=== PATIENT | female | born 1960 | race Caucasian/White ===

== ENCOUNTER → 2022-01-05 01:32 | Outpatient (CLI) | payer MEDICAID, SELFPAY ==
[2022-01-05 10:22] LABS: ESR 1 mm/hr (0-30)
[2022-01-05 10:23] LABS: Abs Immature Grans 0.01 10^3/uL (0.0-0.06); Absolute Basophil Count 0.03 10^3/uL (0.0-0.2); Absolute Eosinophil Count 0.06 10^3/uL (0.0-0.7); Absolute Lymphocyte Count 1.41 10^3/uL (1.2-3.4); Absolute Monocyte Count 0.37 10^3/uL (0.1-0.8); Absolute Neutrophil Count 1.86 10^3/uL (1.2-6.7); Basophils % 0.8; Eosinophils % 1.6; HCT 39.2 % (36.0-46.0); HGB 12.8 g/dL (11.2-15.7); Immature Grans % 0.3; Lymphocytes % 37.7; MCH 29.4 pg (27.0-33.0); MCHC 32.7 % (32.0-36.0); MCV 90 fL (80-95); MPV 10.6 fL (8.0-11.0); Monocytes % 9.9; Neutrophils % 49.7; Platelet Count 282 10^3/uL (130-400); RBC 4.36 10^6/uL (3.93-5.22); RDW 12.4 % (11.7-14.6); RDW-SD 41.2 fL; WBC 3.74 10^3/uL (4.4-10.8)
[2022-01-05] MEDS: Barium Sulfate 2% W/V-Berry Smoothie 450 ML BTL PO ×2 (10:23→10:37)
[2022-01-05 10:49] LABS: Iron 125 ug/dL (50-170); Total Iron Binding Capacity 321 ug/dL (250-450); Transferrin Sat 39 % (15-50)
[2022-01-05 11:03] LABS: ALT 23 U/L (14-59); AST 16 U/L (15-37); Albumin 4.1 g/dL (3.4-5.0); Alkaline Phosphatase 55 U/L (46-116); Anion Gap 8.9 mmol/L (3-11); BUN 8 mg/dL (7-18); Bilirubin, Total 0.5 mg/dL (0.2-1.0); CO2 30.1 mmol/L (21.0-32.0); CREATININE 0.9 mg/dL (0.55-1.02); Calcium 9.3 mg/dL (8.5-10.1); Calculated LDL 132 mg/dL (<100); Chloride 105 mmol/L (98-107); Cholesterol 211 mg/dL (<200); Ferritin 46 ng/mL (8-252); Folate > 20.0 ng/mL (8.6-20.0); Glucose 101 mg/dL (74-106); HDL Cholesterol 69 mg/dL (40-60); Potassium 3.9 mmol/L (3.5-5.1); Sodium 144 mmol/L (136-145); TSH 1.22 uIU/mL (0.36-3.74); Total Protein 7.2 g/dL (6.4-8.2); Triglyceride 53 mg/dL (<150); Vitamin B12 1748 pg/mL (193-986)
[2022-01-05 11:19] LABS: C-Reactive Protein < 0.05 mg/dL (0.0-0.3); FREE T4 1.12 ng/dL (0.76-1.46)
--- NOTE | 2022-01-05 12:43 | DI.CT_ITS ---
Exam(s) CT ABDOMEN PELVIS W EXAM: CT ABDOMEN PELVIS W INDICATION: LOW BACK PAIN, M54.50, CONCERN SACRAL REGION/RECTUM. COMPARISON: No exams were available for comparison TECHNIQUE: FINDINGS: CT examination of the abdomen and pelvis was performed with intravenous infusion of 100 cc of Omnipaq ue 350. Images obtained through the lung bases are unremarkable. The liver is unremarkable in appearance. Gallbladder and bile ducts are CT normal. Pancreas appears normal. Spleen is unremarkable in appearance. Adrenals appear normal. The right kidney is unremarkable in appearance with no evidence of hydronephrosis, nephrolithiasis, o r mass. The left kidney contains multiple large nonobstructing renal calculi. No left renal mass no left ure teral calcification period urinary bladder is unremarkable appearance.. Abdominal aorta is of normal diameter and no major vascular abnormality is seen. No abdominal wall hernia. No abdominal or pelvic adenopathy. TEACHER ASSOCIATE structures appear intact. Appendix is normal. No evidence diverticulitis. There is a very large quantity of fecal material th roughout colon to rectum consistent with constipation.. IMPRESSION: The appearance suggests severe constipation. No evidence of bowel obstruction. Multiple nonobstructing left renal calculi noted. RADIATION DOSE DELIVERED: 545.21mGy.cm Total DLP 545.21mGy.cm Total DLP !Error CTDIvol RADIATION OPTIMIZATION: All CT scans at this facility use at least one of these dose optimization te chniques: automated exposure control; mA and/or kV adjustment per patient size (includes targeted exa ms where dose is matched to clinical indication); or iterative reconstruction.
[2022-01-05] MEDS: Omnipaque 350 MG/ML 100 ML BTL IJ (12:45)
[2022-01-05 17:57] LABS: T3,Free 3.4 pg/mL (2.8-5.3)
[2022-01-06 14:28] LABS: Insulin 4.2 uIU/mL (<29.0)
[2022-01-07 09:12] LABS: Homocysteine 17.2 umol/L (5.0-13.9)
[2022-01-07 09:45] LABS: Lipoprotein (a) 19 nmol/L (<75)
== END ==
PROVIDERS: PCP Nurse Practitioner; Visit Provider Naturopath
DX: K59.00 Constipation, unspecified (principal); N20.0 Calculus of kidney
CPT/HCPCS: 80053; 80061; 83090; 83695; 85652; 74177; 82607; 82728; 82746; 83036; 83525; 83540; 83550; 84439; 84443; 84481; 85025; 86140; J3490

== ENCOUNTER 2022-01-14 11:06 | Emergency (ER) | payer MEDICAID, SELFPAY ==
[2022-01-14 11:11] VITALS: BP 136/92; PULSE 73; RESP 18; TEMP 36.8; O2SAT 98
[2022-01-14 11:39] VITALS: RESP 16
[2022-01-14] MEDS: Normal Saline 1,000 ML 1000 ML IV (11:54)
[2022-01-14 11:57] LABS: Lactate 0.8 mmol/L (0.6-1.4)
[2022-01-14 11:58] LABS: Absolute Basophil Count 0.03 10^3/uL (0.0-0.2); Absolute Eosinophil Count 0.07 10^3/uL (0.0-0.7); Absolute Lymphocyte Count 1.63 10^3/uL (1.2-3.4); Absolute Monocyte Count 0.32 10^3/uL (0.1-0.8); Absolute Neutrophil Count 1.86 10^3/uL (1.2-6.7); Basophils % 0.8; Eosinophils % 1.8; HCT 38.2 % (36.0-46.0); HGB 12.6 g/dL (11.2-15.7); Lymphocytes % 41.7; MCH 29.4 pg (27.0-33.0); MCV 89 fL (80-95); MPV 10.8 fL (8.0-11.0); Monocytes % 8.2; Neutrophils % 47.5; Platelet Count 253 10^3/uL (130-400); RBC 4.28 10^6/uL (3.93-5.22); RDW 12.7 % (11.7-14.6); RDW-SD 41.5 fL; WBC 3.91 10^3/uL (4.4-10.8)
[2022-01-14 12:15] LABS: ALT 26 U/L (14-59); AST 16 U/L (15-37); Albumin 3.9 g/dL (3.4-5.0); Alkaline Phosphatase 50 U/L (46-116); Anion Gap 8.3 mmol/L (3-11); BUN 11 mg/dL (7-18); Bilirubin, Total 0.4 mg/dL (0.2-1.0); CO2 28.7 mmol/L (21.0-32.0); CREATININE 0.8 mg/dL (0.55-1.02); Chloride 104 mmol/L (98-107); Glucose 93 mg/dL (74-106); Lipase 110 U/L (73-393); Magnesium 2.2 mg/dL (1.8-2.4); Potassium 4.1 mmol/L (3.5-5.1); Sodium 141 mmol/L (136-145); Total Protein 7.1 g/dL (6.4-8.2)
--- NOTE | 2022-01-14 12:18 | DI.RAD_ITS ---
Exam(s) XR ABD FLAT UPRIGHT PA CHEST CLINICAL HISTORY: Constipation. COMPARISON: CR CHEST 2 VIEWS PA,LAT from 05/12/[address] ABDOMEN PELVIS W from 01/05/2022 FINDINGS: LUNGS: Clear. No pleural abnormality seen. HEART: Normal. MEDIASTINUM: Normal. BOWEL GAS PATTERN: Nondistended bowel loops. Significant improvement since prior CT with marked decre ase in quantity of fecal material. ABNORMAL COLLECTIONS OF AIR: No abnormal collection of air. No pneumoperitoneum. CALCIFICATIONS: Calcifications projecting in upper pole of left kidney as seen on prior CT. IMPRESSION: 1. Significant interval decrease in quantity of stool. 2. No acute pulmonary findings.
--- NOTE | 2022-01-14 12:26 | ED.GENADUL_ITS ---
Discharge Plan Disposition Patient Disposition: HOME Condition: Improving Discharge Details Clinical Impression: Constipation Primary Care Provider: Angelica Jackson ED Provider: Seferino Wahl Home Meds and New Rx's Prescriptions: New PEG-Prep 5-210 mg-gram kit See Rx Instructions .ROUTE .COMPLEX Qty: 2 0RF Rx Instructions: (240 mL [8 oz] every 15 minutes x 4 doses wait 2 hours then repeat once Discharge Instructions Instructions: Constipation (ED) Additional Instructions: If you develop fever chills nausea vomiting blood in your stool or significant worsening of symptoms please return to the emergency department. Otherwise take medications as discussed and a follow-up appointment request has been placed to follow-up with general surgery in the next couple weeks for reassessment of why you have persistent constipation. Referrals: [facility] [Provider Group] - 2 weeks Discharge Data Discharge Date/Time-TO BE ENTERED AT DEPARTURE: 01/14/22 15:29 Medical Decision Making Patient presenting to the emergency department for chief complaint of severe constipation. Patient recently had CT scan that showed this and patient states that she has had worsening bowel movements with now only slight water passage. Patient denies fever chills nausea vomiting or blood. She has used multiple stool softeners and laxatives that are not helping at all. Patient states that she has had changing bowel function for the past 6 months with no improvement and slightly worsening. Physical exam is unremarkable. We will plan on performing labs and plain film imaging along with giving IV fluids pending results. Review of labs show an overall unremarkable CBC, normal lactate, unremarkable CMP and lipase. Repeat plain film imaging compared to CT imaging actually shows significant improvement. Discussed risk versus benefit of digital disimpaction due to patient reporting sensation of significant blockage. After discussion of risk versus benefit verbal consent was obtained. RN was in the room for procedure and patient was given small amount of Ativan to help with her anxiety and lidocaine jelly was utilized to lessen discomfort. No stool impaction was noted, no stool in the palpable rectum was able to be appreciated and no sample was even able to be obtained to check for Hemoccult. Patient tolerated procedure well. We will give patient enema to see if this provides her any relief. Patient had 2 watery stools with no significant stool passage. Given patient's continued complaint of constipation will prescribe patient bowel prep to see if this helps with completely evacuating the bowels. Patient was then encouraged to perform clear liquid diet for 24 hours and then slowly advance diet with continuing only stool softeners or Metamucil to help with continued bowel movements. Given that patient has had significant change in bowel function over the last 6 months a referral was placed for general surgery for follow-up and recheck of her symptoms along with consideration of repeat colonoscopy due to the fact that she has not had one in 10 years. After discussion of diagnosis and plan of care patient has no further needs, questions, or concerns and states clear understanding to return to the emergency department for any worsening symptoms. This documentation was generated using [employer] Everywhereation system, please disregard any oddities of phrase or misspellings. Imaging Data Radiologic Study: Imaging: X-Ray Radiologist's impression: FINDINGS: LUNGS: Clear. No pleural abnormality seen. HEART: Normal. MEDIASTINUM: Normal. BOWEL GAS PATTERN: Nondistended bowel loops. Significant improvement since prior CT with marked decrease in quantity of fecal material. ABNORMAL COLLECTIONS OF AIR: No abnormal collection of air. No pneumoperitoneum. CALCIFICATIONS: Calcifications projecting in upper pole of left kidney as seen on prior CT. IMPRESSION: 1. Significant interval decrease in quantity of stool. 2. No acute pulmonary findings. Lab Data Lab results reviewed: Yes I reviewed the patient's lab results. HPI General Mode of arrival: ambulatory . Date/Time Provider Initiated Documentation: 01/14/22 11:14 . Limitations to Documentation: no limitations . Information obtained by: patient and RN notes reviewed . History of Present Illness 62 year old F presents to the emergency department with the chief complaint of Constipation, described as severe and similar to prior episodes, Quality is described as other (Denies pain), Patient reports no radiation. Patient started experiencing this month(s) (6) and it has been constant. No relieving factors improve symptom(s), No exacerbating factors reported . Patient notes no other symptoms.. Patient did receive the following treatments prior to arrival, other (Qydb-wzv-schgsxo laxatives) Related Data Home Medications Medication Instructions Recorded Confirmed bisacodyl 5 mg-peg 210 See Rx Instructions .Route 01/14/22 gram-electrolyte solution oral kit .COMPLEX #2 ea (PEG-Prep) Previous Rx's Medication Instructions Recorded bisacodyl 5 mg-peg 210 See Rx Instructions .Route 01/14/22 gram-electrolyte solution oral kit .COMPLEX #2 ea (PEG-Prep) Allergies Allergy/AdvReac Type Severity Reaction Status Date / Time No Known Allergies Allergy Unverified 01/14/22 11:14 General Stated Complaint: GenMedical RONAK: 3 Review of Systems Constitutional Constitutional: Denies chills, Denies fever(s) and Reports poor appetite Cardiovascular Cardiovascular: Denies chest pain and Denies dyspnea Respiratory Respiratory: Denies cough and Denies dyspnea Gastrointestinal Gastrointestinal: Reports as per HPI, Denies abdominal pain, Denies melena, Denies hematochezia, Reports change in bowel habits, Reports change in stool character, Reports constipation, Denies diarrhea, Denies nausea and Denies vomiting Genitourinary Genitourinary: Denies hematuria, Denies urinary incontinence, Denies urinary hesitancy and Denies urinary urgency Integumentary/Breasts Skin/Breast: Denies rash PFSH All Active Problems Constipation (Acute) Social History Smoking/Tobacco Use Status: Never Smoking risk assessment performed?: Yes Alcohol Intake: current Alcohol Intake frequency: holidays/special occasions only Drug use: Never Substance use type: does not use Do you feel safe at home: Yes Do you feel safe in your relationship?: Yes Exam Const General: cooperative Orientation: alert, awake and oriented x3 Resp Effort & Inspection: normal respiratory effort and able to speak in complete sentences Auscultation: clear to auscultation bilaterally Cardio Rate: regular rate Rhythm: regular rhythm Heart Sounds: S1 normal and S2 normal GI Palpation: soft, no hepatosplenomegaly, not firm, no guarding, no masses, no p ulsatile masses, not rigid, no splenomegaly and nontender Auscultation: hypoactive bowel sounds Rectal Exam - female: visual inspection normal, normal sphincter tone, No fecal impaction, No tenderness and other (Insurance Sales Executive present for exam) Back/Spine/Pelvis Back: no CVA tenderness Neuro General: patient alert, patient awake, patient oriented x3, gait normal and moves all extremities Course Vital Signs Vital signs: Vital Signs Temperature 36.8 C 01/14/22 11:11 Pulse 73 01/14/22 11:11 Respiratory Rate 18 01/14/22 11:11 Blood Pressure 136/92 H 01/14/22 11:11 Pulse Oximetry 98 01/14/22 11:11 Temperature 36.8 C 01/14/22 11:11 Temperature Source Temporal Artery Scan 01/14/22 11:11 Pulse 73 01/14/22 11:11 Respiratory Rate 16 01/14/22 11:39 Respiratory Effort Non-Labored 01/14/22 11:39 Respiratory Depth Normal 01/14/22 11:39 Respiratory Pattern Normal 01/14/22 11:39 Blood Pressure 136/92 H 01/14/22 11:11 Blood Pressure Position Sitting 01/14/22 11:11 Pulse Oximetry 98 01/14/22 11:11 Oxygen Delivery Method Room Air 01/14/22 11:11 Oxygen Flow Rate 0 01/14/22 11:11 Lab/Test Results Lab/Test Results: Laboratory Tests Range/Units 01/14/22 01/14/22 01/14/22 11:54 11:54 11:54 WBC (4.4-10.8) 10^3/uL 3.91 L RBC (3.93-5.22) 10^6/uL 4.28 Hgb (11.2-15.7) g/dL 12.6 Hct (36.0-46.0) % 38.2 MCV (80-95) fL 89 MCH (27.0-33.0) pg 29.4 MCHC (32.0-36.0) % 33.0 RDW (11.7-14.6) % 12.7 Plt Count (130-400) 10^3/uL 253 MPV (8.0-11.0) fL 10.8 Immature Gran % 0.0 Neutrophils % 47.5 Lymphocytes % 41.7 Monocytes % 8.2 Eosinophils % 1.8 Basophils % 0.8 Nucleated RBC % (0.0-0.3) % 0.0 Absolute Neutrophils (1.2-6.7) 10^3/uL 1.86 Absolute Lymphocytes (1.2-3.4) 10^3/uL 1.63 Absolute Monocytes (0.1-0.8) 10^3/uL 0.32 Absolute Eosinophils (0.0-0.7) 10^3/uL 0.07 Absolute Basophils (0.0-0.2) 10^3/uL 0.03 VBG Lactate (0.6-1.4) mmol/L Sodium (136-145) mmol/L 141 Potassium (3.5-5.1) mmol/L 4.1 Chloride (98-107) mmol/L 104 Carbon Dioxide (21.0-32.0) mmol/L 28.7 Anion Gap (3-11) mmol/L 8.3 BUN (7-18) mg/dL 11 Creatinine (0.55-1.02) mg/dL 0.8 Estimated GFR/1.73 m2 (mL/min/1.73m2) >= 60.00 Glucose (74-106) mg/dL 93 Calcium (8.5-10.1) mg/dL 9.0 Magnesium Cancelled 2.2 Total Bilirubin (0.2-1.0) mg/dL 0.4 AST (15-37) U/L 16 ALT (14-59) U/L 26 Alkaline Phosphatase (46-116) U/L 50 Total Protein (6.4-8.2) g/dL 7.1 Albumin (3.4-5.0) g/dL 3.9 Lipase Cancelled 110 Range/Units 01/14/22 11:55 WBC (4.4-10.8) 10^3/uL RBC (3.93-5.22) 10^6/uL Hgb (11.2-15.7) g/dL Hct (36.0-46.0) % MCV (80-95) fL MCH (27.0-33.0) pg MCHC (32.0-36.0) % RDW (11.7-14.6) % Plt Count (130-400) 10^3/uL MPV (8.0-11.0) fL Immature Gran % Neutrophils % Lymphocytes % Monocytes % Eosinophils % Basophils % Nucleated RBC % (0.0-0.3) % Absolute Neutrophils (1.2-6.7) 10^3/uL Absolute Lymphocytes (1.2-3.4) 10^3/uL Absolute Monocytes (0.1-0.8) 10^3/uL Absolute Eosinophils (0.0-0.7) 10^3/uL Absolute Basophils (0.0-0.2) 10^3/uL VBG Lactate (0.6-1.4) mmol/L 0.8 Sodium (136-145) mmol/L Potassium (3.5-5.1) mmol/L Chloride (98-107) mmol/L Carbon Dioxide (21.0-32.0) mmol/L Anion Gap (3-11) mmol/L BUN (7-18) mg/dL Creatinine (0.55-1.02) mg/dL Estimated GFR/1.73 m2 (mL/min/1.73m2) Glucose (74-106) mg/dL Calcium (8.5-10.1) mg/dL Magnesium Total Bilirubin (0.2-1.0) mg/dL AST (15-37) U/L ALT (14-59) U/L Alkaline Phosphatase (46-116) U/L Total Protein (6.4-8.2) g/dL Albumin (3.4-5.0) g/dL Lipase Procedures Rectal Disimpaction Time Out Performed: Yes Indication: fecal impaction Procedural Sedation: No Sedation/Analgesia: benzodiazepines and other (Lido gel) Technique: manual disimpaction with gloved finger Result: unable to disimpact Patient Tolerated Procedure: well Complications: none PAWSS Have you Been Recently Intoxicated or Drunk Within the Last 30 days?: No Have you Ever Experienced Previous Episodes of Alcohol Withdrawal?: No Have you ever Experienced Withdrawal Seizures?: No Have you ever Experienced Delirium Tremens(DT)s?: No Have you ever undergone Alcohol Rehabilitation Treatment (i.e, inpt ot outpatient treatment programs)?: No Have you ever Experienced Blackouts?: No Have you ever Combined Alcohol with other Downers within the last 90 days?: No Have you ever Combined Alcohol with any other Substance of Abuse during the last 90 days?: No Positive Blood Alcohol level on Presentation? [PCS.BAL]: No Evidence of Increased Autonomic Activity (i.e. HR>120, tremor, sweating, agitation, nausea)?: No Result: 0
[2022-01-14] MEDS: Lidocaine 2% Jelly 6 ML SYR TP (13:15)
[2022-01-14] MEDS: LORazepam 20 MG/10 ML VIAL IVP (13:51)
--- NOTE | 2022-01-14 14:42 | NUR.NOTE ---
Nursing Note: Pt info faxed to general surgery for follow up in 1-2 weeks for severe constipation and recheck. Hiral, ED
== END 2022-01-14 15:29 | disposition home or self-care (01) ==
PROVIDERS: Emergency Provider Nurse Practitioner Family; PCP Naturopath
DX: K59.00 Constipation, unspecified (principal); F41.9 Anxiety disorder, unspecified
CPT/HCPCS: 36415; 80053; 83690; 96361; 96374; 99284; 74022; 83605; 83735; 85025; J3490

== ENCOUNTER 2022-02-18 09:12 | Day surgery (SDC) | payer MEDICAID, SELFPAY ==
[2022-02-18 09:20] VITALS: BP 131/85; PULSE 70; RESP 18; TEMP 36.6; O2SAT 99
--- NOTE | 2022-02-18 09:41 | W.PM.DSUDISC ---
Discharge Plan Disposition Patient Disposition: HOME Condition: Good Discharge Details Reason For Visit: Colonoscopy Attending Provider: Ruyd Plunkett Primary Care Provider: Angelica Jackson Home Meds and New Rx's Prescriptions: Continued slippery elpavithra bark 400 mg capsule 400 mg PO DAILY Discontinued polyethylene glycol 3350 17 gram/dose powder 238 g PO ONCE Qty: 238 0RF Rx Instructions: take per colonoscopy instructions bisacodyl [Dulcolax (bisacodyl)] 5 mg tablet,delayed release (DR/EC) 5 mg PO ONCE Qty: 4 0RF Rx Instructions: take per colonoscopy instructions No Action B-complex with vitamin C [[id number]] Capsule 1 cap PO DAILY Discharge Instructions Instructions: Colonoscopy (DC), Constipation (DC) Additional Instructions: 1. If tolerated, consume a soft, low fiber diet for 1-2 days. [address] Do not drive, drink alcohol, operate machinery, make critical decisions, or do activities that require coordination or balance for 24 hours. 3. Because air was put into your colon during the procedure, expelling air from your rectum (passing gas or farting) is normal. 4. You may not have a bowel movement for 1-3 days because of the colonoscopy prep. This is normal. 5. Go directly to the emergency room if you notice any of the following: Develop chills (warm to touch), or if you have a thermometer and your temperature is above 101 Difficulty breathing or difficultly swallowing Persistent vomiting Severe abdominal pain, other than gas cramps Severe chest pain Black, tarry stools Any bleeding ? exceeding one tablespoon 6. Call your physician if the site where your intravenous was started becomes red, swollen, painful, and warm to touch. 7. Your physician has reviewed your pre-procedure medications. Please continue to take those medications as previously ordered. You will be given specific information/education regarding any changes to your medications before leaving. Activity:: Activity as Tolerated Diet:: As Tolerated Discharge Orders Discharge Orders: Discharge Order (Routine); Ordered 02/18/22 Ordered By: Rudy Plunkett DS: Diagnosis Discharge Diagnosis (1) Colon polyp: Status: Acute Asessment and Plan: Follow up with me 1-3 weeks to discuss other diagnostic options
--- NOTE | 2022-02-18 09:43 | COLE_ITS ---
Colonoscopy Report Date of procedure: 02/18/22 Pre-op diagnosis general: Constipation and rectal pain Post-op diagnosis procedure note: same Procedure: Diagnostic colonoscopy Surgeon: Rudy Plunkett Anesthesia Type: General:No Airway Estimated blood loss (mL): 20 Pathology: other (polyp from 27 cm, poly from 20 cm) Complications: None Disposition: same day Indications: Denia is a 62-year-old with longstanding lower pelvic and rectal pain. She is undergone multiple CT scans that demonstrated chronic constipation. She also has concerns of a rectocele. Prep: Miralax/Dulcolax Procedure Start Time: 12:02 Procedure End Time: 12:45 Retraction Time: 12 Findings: Dilated patulous colon, and 2 rectal polyps Procedure Description: After the induction of monitored anesthetic care, and with the patient in left lateral decubitus position, I began by performing an external anorectal exam.? Perineum and skin were normal, as was the anal verge.? There are some fibrosed external hemorrhoids.? Next, I performed a digital rectal exam.? I did not appreciate any abnormal findings.? I am unable to palpate a rectocele next, I advanced a colonoscope into the rectal vault.? I performed retroflexion.? There are some mild internal hemorrhoids.? Using insufflation, I then advanced the c olonoscope beyond the rectal folds and into the sigmoid colon before advancing towards the cecum.? The quality of the prep was excellent.? I was able to advance the colonoscope to the level of the ascending colon. I was able to see the origin of the cecum, and perhaps its base. Unfortunately, because of the length and character of the colon, I was unable to advance the colonoscope to the appendiceal orifice. Despite extensive effort and positioning, I was unable to complete the colonoscopy. In fact, I asked for the assistance of my partner who also failed to cannulate the base of the cecum. Largely, the internal lining of the colon appeared quite normal. It was quite patulous and redundant. It was also quite large with insufflation. In order to minimize any iatrogenic trauma, or injury from colonoscopy, I turned my attention toward withdrawal of the scope. Once the scope was withdrawn to the level of the rectum, great care was taken to examine portions of the rectal folds.?Around 27 cm cm from the anal verge I identified a 0.25 centimeter polyp. ?It appeared sessile in character. ?I was able to remove this with a cold forcep. ?I examined the site, and there was minimal bleeding. Around 20 cm from the anal verge I identified a 0.5 cm polyp. ?It appeared sessile in character. ?I was able to remove this with a cold forcep. ?I examined the site, and there was minimal bleeding. ?Once this was completed, I continued to withdraw the scope and examine the remainder of the colonic mucosa.?Once this was completed, I continued to withdraw the scope and examine the remainder of the colonic mucosa. Finally, the scope was withdrawn and the patient was brought to the same-day surgery recovery unit as the anesthetic wore off. ?The findings and instructions were shared with the patient prior to discharge. Based on the findings of his colonoscopy, I suspect that she has a functional constipation. We talked briefly about modalities to study that like a colonic transit time. We will meet in the office for arrangements regarding the next steps in her diagnosis.
[2022-02-18] MEDS: Lactated Ringers 1,000 ML 80 ML IV (10:05)
--- NOTE | 2022-02-18 10:12 | W.ANESPRE ---
General Info Date of Service Date Performed: 02/18/22 Height: 5 ft 3 in Weight: 54.1 kg Body Mass Index (BMI): 21.1 Surgical Procedure: Operation Date: 02/18/22 10:05 Proposed Procedure Side Surgeon p Margarette Plunkett MD Meds Allergies and Home Medications Allergies Allergy/AdvReac Type Severity Reaction Status Date / Time No Known Allergies Allergy Unverified 02/18/22 09:42 Home Medication Medication Instructions Recorded slippery elm bark 400 mg capsule 400 mg PO DAILY 02/07/22 B-complex with vitamin C 1 cap PO DAILY 02/18/22 Current Visit Medications: Current Medications Generic Name Dose Route Start Last Admin Trade Name Freq PRN Reason Stop Dose Admin Hyoscyamine Sulfate 0.125 mg 02/18/22 09:44 Hyoscyamine 0.125 Mg Sl/Oral/Chew SL DIRECTED PRN Ringer's Solution 1,000 mls @ 80 mls/hr 02/18/22 06:00 IV 02/18/22 23:59 INFUSION LUÍS IV Miscellaneous Supplies 1 each 02/18/22 06:00 Iv Access IV 02/18/22 23:59 DIRECTED LUÍS Sodium Chloride 0 ml 02/18/22 06:00 Normal Saline Flush 10 Ml Syr IV 02/18/22 23:59 PRN PRN Sodium Chloride 0 ml 02/18/22 06:00 Normal Saline 10 Ml Vial IJ 02/18/22 23:59 DIRECTED PRN Sterile Water 0 ml 02/18/22 06:00 Water,Injection,Sterile 10 Ml Vial IJ 02/18/22 23:59 DIRECTED PRN PFSH Active Problems Active Problems: Problem Status Onset Code Lightheadedness R42 Varicose veins of both lower extremities I83.93 Chronic pelvic pain in female R10.2, G89.29 Rectal pain K62.89 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 Leukopenia D72.819 Impaction of intestine K56.49 Medical History Medical History Fatigue Hyperlipidemia Low back pain Surgical History Surgical History H/O section H/O colonoscopy History of tonsillectomy Tobacco Smoking/Tobacco Use Status: Never Alcohol Alcohol Intake: current Alcohol intake frequency: holidays/special occasions only Substance Use Substance use: Never Substance use type: does not use Vital Signs and Lab Results Vital Signs Most Recent Vital Signs in EMR: Most Recent Vital Signs Temp Pulse Resp BP Pulse Ox 36.6 C 70 18 131/85 99 02/18/22 09:20 02/18/22 09:20 02/18/22 09:20 02/18/22 09:20 02/18/22 09:20 Lab Results Blood Type / Crossmatch: No Data to Display Complete Blood Count: No Data to Display Complete Metabolic Panel: No Data to Display Liver Function Panel: No Data to Display Coagulation Panel: No Data to Display Cardiac Panel: No Data to Display Arterial Blood Gas: No Data to Display Venous Blood Gas: No Data to Display Pancreas Panel: No Data to Display Thyroid Panel: No Data to Display Infectious Disease: No Data to Display Blood Cultures: No Data to Display Toxicology Panel: No Data to Display Anesthesia Assessment and Plan Anesthesia History Personal History: No History of Anesthesia Complications Family History: No Family History of Anesthesia Complications Exercise Tolerance Exercise Tolerance: Metabolic Equivalents>4 Pertinent Negatives Pertinent Negatives: No Major Cardiovascular Symptoms or Complaints, No Major Pulmonary Symptoms or Complaints and No History of CVA/TIA Cardiac & Pulmonary Exam Cardiac Exam: Normal S1/S2 Heart Sounds Pulmonary Exam: Clear Bilateral Breath Sounds Implantable Cardiac Device Does patient have a Pacemaker or an ICD?: No Airway Exam Known Difficult Airway: No Mallampati Class: 2 Mouth Opening: Normal (> 3cm) Thyromental Distance: Greater than 3 cm Neck Range of Motion: Full ROM Neck Circumference: Normal Teeth Condition: Normal Dentition ASA Classification ASA Score: ASA 2 Emergency Case?: No NPO Status NPO Status: NPO Clears >2 hours, Solids >8 hours Anesthesia Plan Resuscitation Status: Full Code Anesthesia Technique: General Anesthesia Airway Planned: Natural Airway Monitors Used: Standard Monitors
--- NOTE | 2022-02-18 10:17 | W.ANESPRE ---
General Info Date of Service Date Performed: 02/18/22 Height: 5 ft 3 in Weight: 54.1 kg Body Mass Index (BMI): 21.1 Surgical Procedure: Operation Date: 02/18/22 10:05 Proposed Procedure Side Surgeon p Colonoscopy Rudy Plunkett MD Meds Allergies and Home Medications Allergies Allergy/AdvReac Type Severity Reaction Status Date / Time No Known Allergies Allergy Unverified 02/18/22 09:42 Home Medication Medication Instructions Recorded slippery elm bark 400 mg capsule 400 mg PO DAILY 02/07/22 B-complex with vitamin C 1 cap PO DAILY 02/18/22 Current Visit Medications: Current Medications Generic Name Dose Route Start Last Admin Trade Name Freq PRN Reason Stop Dose Admin Hyoscyamine Sulfate 0.125 mg 02/18/22 09:44 Hyoscyamine 0.125 Mg Sl/Oral/Chew SL DIRECTED PRN Ringer's Solution 1,000 mls @ 80 mls/hr 02/18/22 06:00 02/18/22 10:05 IV 02/18/22 23:59 80 mls/hr INFUSION LUÍS Administration IV Miscellaneous Supplies 1 each 02/18/22 06:00 Iv Access IV 02/18/22 23:59 DIRECTED LUÍS Sodium Chloride 0 ml 02/18/22 06:00 Normal Saline Flush 10 Ml Syr IV 02/18/22 23:59 PRN PRN Sodium Chloride 0 ml 02/18/22 06:00 Normal Saline 10 Ml Vial IJ 02/18/22 23:59 DIRECTED PRN Sterile Water 0 ml 02/18/22 06:00 Water,Injection,Sterile 10 Ml Vial IJ 02/18/22 23:59 DIRECTED PRN PFSH Active Problems Active Problems: Problem Status Onset Code Lightheadedness R42 Varicose veins of both lower extremities I83.93 Chronic pelvic pain in female R10.2, G89.29 Rectal pain K62.89 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 Leukopenia D72.819 Impaction of intestine K56.49 Medical History Medical History Fatigue Hyperlipidemia Low back pain Surgical History Surgical History H/O section H/O colonoscopy History of tonsillectomy Tobacco Smoking/Tobacco Use Status: Never Alcohol Alcohol Intake: current Alcohol intake frequency: holidays/special occasions only Substance Use Substance use: Never Substance use type: does not use Vital Signs and Lab Results Vital Signs Most Recent Vital Signs in EMR: Most Recent Vital Signs Temp Pulse Resp BP Pulse Ox 36.6 C 70 18 131/85 99 02/18/22 09:20 02/18/22 09:20 02/18/22 09:20 02/18/22 09:20 02/18/22 09:20 Lab Results Blood Type / Crossmatch: No Data to Display Complete Blood Count: No Data to Display Complete Metabolic Panel: No Data to Display Liver Function Panel: No Data to Display Coagulation Panel: No Data to Display Cardiac Panel: No Data to Display Arterial Blood Gas: No Data to Display Venous Blood Gas: No Data to Display Pancreas Panel: No Data to Display Thyroid Panel: No Data to Display Infectious Disease: No Data to Display Blood Cultures: No Data to Display Toxicology Panel: No Data to Display Anesthesia Assessment and Plan Anesthesia History Personal History: No History of Anesthesia Complications Family History: No Family History of Anesthesia Complications Exercise Tolerance Exercise Tolerance: Metabolic Equivalents>4 Pertinent Negatives Pertinent Negatives: No Symptoms of GERD, No Major Cardiovascular Symptoms or Complaints and No Major Pulmonary Symptoms or Complaints Cardiac & Pulmonary Exam Cardiac Exam: Normal S1/S2 Heart Sounds Pulmonary Exam: Clear Bilateral Breath Sounds Implantable Cardiac Device Does patient have a Pacemaker or an ICD?: No Airway Exam Known Difficult Airway: No Mouth Opening: Normal (> 3cm) Thyromental Distance: Greater than 3 cm Neck Range of Motion: Full ROM Neck Circumference: Normal ASA Classification ASA Score: ASA 2 Emergency Case?: No NPO Status NPO Status: NPO Clears >2 hours, Solids >8 hours Anesthesia Plan Resuscitation Status: Full Code Anesthesia Technique: General Anesthesia Airway Planned: Natural Airway Monitors Used: Standard Monitors
[2022-02-18 10:29] VITALS: BMI 21.1
--- NOTE | 2022-02-18 12:43 | BOWEL_PTH ---
PATIENT: Denia Nice LOC: [facility] U#:[id number] AGE/SX: 62/F ROOM: RE02/18/[address]: Rudy Plunkett MD : 1960 BED: DIS: 02/18/2022 SPEC #: [id number] RECD: 02/18/22 13:01 STATUS: KLARISSA RE #: [id number] ZEUS: 02/18/22 12:[address]: Rudy Plunkett DEPT: Surgical Specimen RECD BY: Felicia Hsu ENTERED: 02/18/22 13:01 SP TYPE: Bowel OTHR DR: Angelica Jackson Tissues: 1 - BIOPSY BOWEL 2 - BIOPSY BOWEL Procedures: GROSS AND MICRO LEVEL 4 Comments: [id number]
[2022-02-18 12:53] VITALS: BP 145/97; PULSE 70; RESP 16; TEMP 36.6; O2SAT 99
[2022-02-18] MEDS: Hyoscyamine 0.125 MG SL/ORAL/CHEW SL (13:08)
[2022-02-18 13:22] VITALS: BP 161/90; PULSE 60; RESP 16; TEMP 36.5; O2SAT 98
[2022-02-18 13:53] VITALS: BP 151/77; PULSE 60; RESP 16; TEMP 36.7; O2SAT 97
--- NOTE | 2022-02-18 14:16 | W.ANESPOSTOP ---
Postoperative Evaluation Date, Time and Location Date Performed: 02/18/22 Time Performed: 14:16 Patient Location: Day Surgery Unit Vital Signs Most Recent Imported Vital Signs: Most Recent Vital Signs Temp Pulse Resp BP Pulse Ox 36.7 C 60 16 151/77 H 97 02/18/22 13:53 02/18/22 13:53 02/18/22 13:53 02/18/22 13:53 02/18/22 13:53 Pain Score Most Recent Pain Score: Most Recent Pain Score Pain Level 5 02/18/22 13:53 Assessment Mental Status: Awake (Alert & Oriented to Patient Baseline) Airway and Respiratory Function: Patent airway with normal (patient baseline) respiratory exam Cardiovascular Function: Hemodynamically Stable Hydration Status: Adequately Hydrated Nausea & Vomiting: No Nausea or Vomiting Pain: Pain is tolerable per patient (Abdominal cramping, passing gas.) Peripheral Nerve Block: Patient did not receive a nerve block
--- NOTE | 2022-02-18 14:27 | W.PM.DSUDISC ---
Discharge Plan Disposition Patient Disposition: HOME Condition: Good Discharge Details Reason For Visit: Colonoscopy Attending Provider: Rudy Plunkett Primary Care Provider: Angelica Jackson Home Meds and New Rx's Prescriptions: Continued slippery shane bark 400 mg capsule 400 mg PO DAILY Discontinued polyethylene glycol 3350 17 gram/dose powder 238 g PO ONCE Qty: 238 0RF Rx Instructions: take per colonoscopy instructions bisacodyl [Dulcolax (bisacodyl)] 5 mg tablet,delayed release (DR/EC) 5 mg PO ONCE Qty: 4 0RF Rx Instructions: take per colonoscopy instructions No Action B-complex with vitamin C [[id number]] Capsule 1 cap PO DAILY Discharge Instructions Instructions: Constipation (DC), Colonoscopy (DC) Additional Instructions: 1. If tolerated, consume a soft, low fiber diet for 1-2 days. [address] Do not drive, drink alcohol, operate machinery, make critical decisions, or do activities that require coordination or balance for 24 hours. 3. Because air was put into your colon during the procedure, expelling air from your rectum (passing gas or farting) is normal. 4. You may not have a bowel movement for 1-3 days because of the colonoscopy prep. This is normal. 5. Go directly to the emergency room if you notice any of the following: Develop chills (warm to touch), or if you have a thermometer and your temperature is above 101 Difficulty breathing or difficultly swallowing Persistent vomiting Severe abdominal pain, other than gas cramps Severe chest pain Black, tarry stools Any bleeding ? exceeding one tablespoon 6. Call your physician if the site where your intravenous was started becomes red, swollen, painful, and warm to touch. 7. Your physician has reviewed your pre-procedure medications. Please continue to take those medications as previously ordered. You will be given specific information/education regarding any changes to your medications before leaving. Stand Alone Forms: Sandra Rey (KALIEU) Activity:: Activity as Tolerated Diet:: As Tolerated Discharge Orders Discharge Orders: Discharge Order (Routine); Ordered 02/18/22 Ordered By: Rudy Plunkett Discharge Data Discharge Date/Time-TO BE ENTERED AT DEPARTURE: 02/18/22 14:35 DS: Diagnosis Discharge Diagnosis (1) Colon polyp: Status: Acute Asessment and Plan: Follow-up with biopsy results
== END 2022-02-18 14:35 | disposition home or self-care (01) ==
PROVIDERS: PCP Naturopath; Visit Provider Surgery
PROC: 0DJD8ZZ Inspection of Lower Intestinal Tract, Via Natural or Artificial Opening Endoscopic (ICD-10-PCS; CPT 45378; principal; 2022-02-18 10:00)
DX: K59.00 Constipation, unspecified (principal); K62.89 Other specified diseases of anus and rectum; K62.1 Rectal polyp
CPT/HCPCS: 45380; 88305; J2704; J3490

== ENCOUNTER 2022-07-28 11:39 | Outpatient (CLI) | payer MEDICAID, SELFPAY | END 2022-07-28 11:40 | disposition home or self-care (01) | LOC: LBO 11:40 | PROVIDERS: PCP Naturopath; Visit Provider Naturopath | DX: R73.03 Prediabetes (principal) | CPT/HCPCS: 36415; 83036 ==

== ENCOUNTER 2022-08-08 10:17 | Outpatient (CLI) | payer MEDICAID, SELFPAY ==
[2022-08-08 10:13] LABS: Abs Immature Grans 0.01 10^3/uL (0.0-0.06); Absolute Basophil Count 0.03 10^3/uL (0.0-0.2); Absolute Eosinophil Count 0.13 10^3/uL (0.0-0.7); Absolute Lymphocyte Count 2.11 10^3/uL (1.2-3.4); Absolute Monocyte Count 0.45 10^3/uL (0.1-0.8); Absolute Neutrophil Count 1.59 10^3/uL (1.2-6.7); Basophils % 0.7; HCT 39.8 % (36.0-46.0); HGB 13.1 g/dL (11.2-15.7); Immature Grans % 0.2; Lymphocytes % 48.8; MCH 29.2 pg (27.0-33.0); MCHC 32.9 % (32.0-36.0); MCV 89 fL (80-95); MPV 10.9 fL (8.0-11.0); Monocytes % 10.4; Neutrophils % 36.9; Platelet Count 288 10^3/uL (130-400); RBC 4.48 10^6/uL (3.93-5.22); RDW 12.6 % (11.7-14.6); WBC 4.32 10^3/uL (4.4-10.8)
[2022-08-08 10:56] LABS: Vitamin D 25 Total 28.7 ng/mL (30-100)
[2022-08-08 11:07] LABS: Calculated LDL 190 mg/dL (<100); Cholesterol 284 mg/dL (<200); Ferritin 35 ng/mL (8-252); Folate 19.4 ng/mL (8.6-20.0); HDL Cholesterol 78 mg/dL (40-60); Triglyceride 83 mg/dL (<150); Vitamin B12 1062 pg/mL (193-986)
[2022-08-08 11:31] LABS: Iron 62 ug/dL (50-170); Total Iron Binding Capacity 369 ug/dL (250-450); Transferrin Sat 17 % (15-50)
[2022-08-10 09:43] LABS: DHEA Sulfate 170 ug/dL (30-182)
[2022-08-10 10:17] LABS: Homocysteine 8.6 umol/L (5.0-13.9)
== END 2022-08-08 10:18 | disposition home or self-care (01) ==
LOC: LBO 10:18
PROVIDERS: PCP Naturopath; Visit Provider Naturopath
DX: R53.83 Other fatigue (principal); E78.5 Hyperlipidemia, unspecified; E55.9 Vitamin D deficiency, unspecified; K63.5 Polyp of colon; E53.8 Deficiency of other specified B group vitamins
CPT/HCPCS: 36415; 80061; 82306; 82627; 83090; 82607; 82728; 82746; 83540; 83550; 85025

== ENCOUNTER 2022-09-21 14:33 | Outpatient (CLI) | payer MEDICAID, SELFPAY ==
[2022-09-23 08:48] LABS: Lyme Ab w Rflx to Lyme Confirm Negative (Negative)
[2022-09-25 22:26] LABS: Anaplasma phagocytophilum Negative (Negative); B. miyamotoi PCR Negative (Negative); Babesia divergens/MO-1 Negative (Negative); Babesia duncani Negative (Negative); Babesia microti Negative (Negative); Ehrlichia chaffeensis Negative (Negative); Ehrlichia ewingii/canis Negative (Negative); Ehrlichia muris eauclairensis Negative (Negative)
== END 2022-09-21 14:34 | disposition home or self-care (01) ==
LOC: LBO 14:34
PROVIDERS: PCP Naturopath; Visit Provider Naturopath
DX: T14.8XXA Other injury of unspecified body region, initial encounter (principal); W57.XXXA Bitten or stung by nonvenomous insect and other nonvenomous arthropods, initial encounter
CPT/HCPCS: 36415; 87798; 86618

== ENCOUNTER 2023-03-16 15:16 | Outpatient (REF) | payer MEDICAID, SELFPAY ==
--- OUTSIDE RECORDS SUMMARY | 2023-03-16 15:20 | XMS_ITS | Continuity of Care Document ---
Author Name Unknown Organization [facility] Ambulatory [facility] Address [address] [place] [address] Care Team Providers Care Flight/Transport Nurse Name Role Phone CLAUDETTE ROSSI N.D. Primary Care Physician Encounter [facility] NBR [id number] Date(s): 02/03/23 - 02/03/23 [facility] [address] [place] [address]- [place] Discharge Disposition: Home Allergies, Adverse Reactions, Alerts No Known Medication Allergies Assessment and Plan Future Appointments Problem List Condition Confirmation Course Effective Dates Status H ealth Status Informant Chronic constipation Confirmed Active Chronic pelvic pain of female Confirmed Active Constipation Confirmed Active Fatigue Confirmed Active Herniation of rectum into vagina Confirmed Active Hyperlipidemia Confirmed Active Small intestine Impaction Confirmed Active Leukopenia Confirmed Active Lightheadedness Confirmed Active Low back pain Confirmed Active Malaise Confirmed Active Paresthesia of lower extremity Confirmed Active Peripheral neuropathy Confirmed Active Prediabetes Confirmed Active Presence of calculi Confirmed Active Rectal pain Confirmed Active Chronic sacral back pain Confirmed Active History infected tick bite Confirmed Active Vitamin D deficiency Confirmed Active Procedures Procedure Date Related Diagnosis Body Site Status section Complete d Tonsillectomy Completed Varicose vein operation C ompleted Social History Social History Type Response Tobacco Never tobacco user T obacco Use:. Sex Patient Care team information Care Team Personnel Name: CLAUDETTE ROSSI N.D. Position: No Access Member Role: Primary Care Physician Address: Address: [address] [place] [id number]
--- OUTSIDE RECORDS SUMMARY | 2023-03-16 15:20 | XMS_ITS | Continuity of Care Document ---
Author Name Unknown Organization [facility] Address [address] [place] [id number] Care Team Providers Care Inside Upholsterer Name Role Phone CLAUDETTE ROSSI N.D. Primary Care Physician Encounter [facility] NBR [id number] Date(s): 01/23/23 - 01/23/[address] [address] Encounter Diagnosis Spinal stenosis, lumbar region without neurogenic claudication(Final) - Discharge Disposition: Home or Self Care Attending Physician: Jorgito Cooley MD Admitting Physician: Jorgito Cooley MD Referring Physician: CLAUDETTE ROSSI N.D. Allergies, Adverse Reactions, Alerts No Known Medication [...] Tonsillectomy Completed Varicose vein operation C ompleted Results Radiology Reports * Exam Date Time Procedure Performing Provider Status 01/23/23 2:39 PM MRI Spine Thoracic w / + w/o Contrast DomainUser, Generated; Auth (Verified) Notes: (MRI Spine Thoracic w/ + w/o Contrast) Reason For Exam: Possible cord or foraminal compression MRI Spine Thoracic w/ + w/o Contrast EXAM DESCRIPTION: MRI Spine Thoracic w/ + w/o Contrast 01/23/2023 INDICATION: POSSIBLE CORD OR FORAMINAL COMPRESSION TECHNIQUE: Multiplanar MRI examination of the thoracic spine utilizing T1, fat-suppressed T2 and fast STIR technique. Postcontrast axial and sagittal T1 weighted images were also obtained. 10 mL of MultiHance contrast was utilized COMPARISON: None FINDINGS: Lateral thoracic spine alignment is satisfactory. T7-8: Mild central disc protrusion without significant stenosis or cord encroachment Remaining levels demonstrate no focal disc protrusion or significant stenosis. Neural foramina appear without significant encroachment throughout the thoracic region. No intrinsic signal abnormality within the thoracic spinal cord to suggest edema or myelomalacia with no evidence of syrinx. The conus tapers normally at the T12-L1 level. Postcontrast images demonstrate no abnormal enhancement No suspicious regional marrow lesions. No vertebral body compression deformity in the thoracic region Spondylotic changes in the visualized lower cervical spine without significant stenosis or cord compression. Paraspinal soft tissues are unremarkable. IMPRESSION: Mild central disc protrusion at T7-8. Remaining levels demonstrate no focal disc protrusion or significant stenosis. No neural foraminal narrowing in the thoracic region Normal thoracic spinal cord Postcontrast images demonstrate no abnormal enhancement. JOB #: [id number] Final Signed by: Km Nichole MD Signed (Electronic Signature): 01/23/2023 3:33 pm * Exam Date Time Procedure Performing Provider Status 01/23/23 2:39 PM MRI Spine Lumbar w/ + w/o Contrast Mikayla Carrasco (Verified) Notes: (MRI Spine Lumbar w/ + w/o Contrast) Reason For Exam: Possible foraminal compression MRI Spine Lumbar w/ + w/o Contrast EXAM DESCRIPTION: MRI Spine Lumbar w/ + w/o Contrast 01/23/2023 INDICATION: POSSIBLE FORAMINAL COMPRESSION TECHNIQUE: Multiplanar MRI examination of the lumbar spine utilizing T1, fat-suppressed T2 and fast STIR technique. Additional postcontrast axial and sagittal T1 weighted images were obtained 10 mL of MultiHance contrast was utilized COMPARISON: None FINDINGS: Mild retrolisthesis at L5-S1. Grade 1 anterolisthesis at L4-5. Lumbar lordosis is otherwise satisfactory. No significant scoliosis L5-S1: Diffuse disc bulge with mild bilateral facet and ligamentum flavum hypertrophy. Mild relative spinal stenosis with AP spinal canal diameter of 8.3 mm. Bilateral lateral recess stenosis. Significant bilateral neural foraminal narrowing with nerve root encroachment, left greater than right L4-5: Diffuse disc bulge with bilateral facet and ligamentum flavum hypertrophy. Significant relative spinal stenosis and thecal sac effacement. AP spinal canal diameter measures 3.6 mm. Significant bilateral lateral recess stenosis. Mild-moderate bilateral neural foraminal narrowing L3-4: Broad-based right paracentral disc extrusion with right lateral recess stenosis and mild right neural foraminal narrowing. No significant central stenosis or left neural foraminal narrowing. L2-3: No focal disc protrusion, significant spinal stenosis or neural foraminal narrowing. L1-2: No focal disc protrusion, significant spinal stenosis or neural foraminal narrowing. Postcontrast images demonstrate no abnormal enhancement The conus is normal in morphology and signal intensity and terminates at the T12-L1 level. Small ovoid ovoid marrow lesion demonstrating increased T1 and T2 signal involving the right aspect of the L2 vertebral body most consistent with vertebral body hemangioma. No suspicious regional marrow lesions. No vertebral body compression deformity in the lumbar region. Paraspinal soft tissues are unremarkable. IMPRESSION: Spondylotic changes in the mid-lower lumbar region. Significant relative spinal stenosis and bilateral lateral recess stenosis at L4-5 with significant bilateral neural foraminal narrowing at L5-S1. Please see above discussion for individual level description. Normal conus. JOB #: [id number] Final Signed by: Km Nichole MD Signed (Electronic Signature): 01/23/2023 3:27 pm Social History Social History Type Response Tobacco Never tobacco user T obacco Use:. Sex Patient Care team information Care Team Personnel Name: CLAUDETTE ROSSI N.D. Position: No Access Member Role: Primary Care Physician Address: Address: [address] [place] [id number] [place]
--- OUTSIDE RECORDS SUMMARY | 2023-03-16 15:20 | XMS_ITS | Continuity of Care Document ---
Author Name Unknown Organization [facility] Ambulatory [facility] Address [address] [place] [address] Care Team Providers Care Residential Energy Auditor Name Role Phone CLAUDETTE ROSSI N.D. Primary Care Physician Encounter [facility] NBR [id number] Date(s): 01/13/23 - 01/13/23 [facility] Ambulatory [facility] [address] [place] [address]- [place] Discharge Disposition: Home Allergies, Adverse Reactions, Alerts No Known Medication Allergies Assessment and Plan Future Appointments Future Scheduled Tests Radiology* MRI Spine Lumbar w/ + w/o Contrast 01/13/23 * MRI Spine Thoracic w/ + w/o Contrast 01/13/23 Problem List Condition Confirmation Course Effective Dates [...] Member Role: Primary Care Physician Address: Address: [address] [place] [id number]
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
--- OUTSIDE RECORDS SUMMARY | 2023-03-16 15:20 | XMS_ITS | Continuity of Care Document ---
Author Name Unknown Organization [facility] Ambulatory Clinics Address [address] [place] [address] Care Team Providers Care Director Of Enrollment Name Role Phone CLAUDETTE ROSSI N.D. Primary Care Physician Encounter [facility] NBR [id number] Date(s): 02/17/23 - 02/17/23 [facility] Ambulatory [facility] [address] [place], [place] [address] Encounter Diagnosis Spondylolisthesis of lumbar region(Discharge Diagnosis) - 02/17/23 Lumbar spinal stenosis(Discharge Diagnosis) - 02/17/23 Discharge Disposition: Home or Self Care Attending Physician: Jorgito Cooley MD Referring Physician: CLAUDETTE ROSSI N.D. Allergies, Adverse Reactions, Alerts No Known Medication Allergies Assessment and Plan Future Appointments Problem List Condition Confirmation Course Effective Dates Status Health Status Informant Chronic constipation Confirmed Active Chronic pelvic pain of female Confirmed Active Constipation Confirmed Active Fatigue Confirmed Active Herniation of rectum into vagina Confirmed Active Hyperlipidemia Confirmed Active Small intestine Impaction Confirmed Active Leukopenia Confirmed Active Lightheadedness Confirmed Active Low back pain Confirmed Active Spondylolisthesis of lumbar region Confirmed Active Malaise Confirmed Active Paresthesia of lower extremity Confirmed Active Peripheral neuropathy Confirmed Active Prediabetes Confirmed Active Presence of calculi Confirmed Active Rectal pain Confirmed Active Chronic sacral back pain Confirmed Active Lumbar spinal stenosis Confirmed Active History infected tick bite Confirmed Active Vitamin D deficiency Confirmed Active Procedures Procedure Date Related Diagnosis Body Site Status section Complete d Tonsillectomy Completed Varicose vein operation C ompleted Vital Signs Most recent to oldest [Reference Range]: 1 Temperature Temporal Artery [36-38 Deg C ] 36.3 Deg C (02/17/23 2:21 PM) Peripheral Pulse Rate [60-100 bpm] 62 bp m (02/17/23 2:21 PM) Blood Pressure [90-140/60-90 mmHg] 120/7 0mmHg (02/17/23 2:21 PM) Weight 59.6 kg (02/17/23 2:21 PM) Weight Measured (lbs) 131.395 lb (02/17/23 2:21 PM) Reading Body Weight Calculated 52.4 kg (02/17/23 2:21 PM) Height 160.02 cm (02/17/23 2:21 PM) Height/Length Measured (inches) 63 inch (02/17/23 2:21 PM) BSA Measured 1.63 m2 (02/17/23 2:21 PM) Body Mass Index 23.28 kg/m2 (02/17/23 2:21 PM) Social History Social History Type Response Tobacco Never tobacco user T obacco Use:. Sex Physician Outpatient Note * MINOR Fletcher: PERFORM Event Display: Office Clinic Note Physician Authored Date: [id number] NATE AVALOS Jacky :1960 Age:63 years Sex:Female Visit Date:02/17/2023 Primary Care Physician: CLAUDETTE ROSSI N.D. History of Present Illness The patient presents to the spine center for evaluation of her low back and bilateral leg pain.?? She reports that she began struggling with low back pain about 3 to 4 years ago but over the past 1 to 2 years??this is worsened.?? Her pain is down low in her low back and radiates to the bilateral buttocks and down the posterior legs to her feet.?? She also has significant numbness in both of her feet that is constant but does fluctuate in severity.?? She also reports that she struggles with constipation and??right around when she is able to move her bowels she has significantly increased pain.?? She also feels that her pain is worse with position changes.?? She states that after she changes positions for example when she gets out of the car she has to stop and stand still and looking several before she can get moving.?? She does physical activity such as yard work??she does have increased pain she has to sit down and put a heating pad on her back and that will subside the pain to some extent.?? 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 ??She does take ibuprofen??and that helps some.?? She??does utilize CBD and cannabis products that??vary in??effectiveness.?? She has??received chiropractic treatments which??helped jarod bit with her alignment but has not helped much with her pain. ?? Review of Systems Relevant ROS discussed in HPI Physical Exam GENERAL:?General Appearance:?pleasant, age appropriate in no apparent distress.?? MUSCULOSKELETAL:?Musculoskeletal:??No lumbar spine,??lumbar paraspinal muscle,??bilateral SI joint or bilateral greater trochanteric bursa tenderness.?? NEUROLOGICAL:?Neurological:?? Negative straight leg bilaterally. ?Motor:?Strength 5/5 with bilateral hip flexion, knee flexion and extension, ankle dorsiflexion and plantar flexion.?Reflexes:?2+ and symmetric in biceps, triceps, brachioradialis and ankles bilaterally.?? 1+ bilateral knee jerks. ? Tone: normal? Gait:??Slightly stiff upon standing. Assessment/Plan 1.??Spondylolisthesis of lumbar region??M43.16 2.??Lumbar spinal stenosis??M48.061 The patient has been struggling with 3 to 4 years of progressively worsening low back and bilateralleg pain.?? She also has paresthesias affecting both of her feet.?? Her pain is only progressed despite trial of medications, cannabis products and chiropractic treatments.?Her pain is almost certainly the results of the abnormalities at L4-5 including the anterolisthesis and significant central, bilateral lateral recess stenosis with bilateral neuroforaminal narrowing as well.??It is also very likely that the significant bilateral??lateral recess stenosis and neuroforaminal narrowing at L5-S1 are contributing to her lower extremity symptoms.?? It is unlikely that physical therapy will help resolve her symptoms given the severity of her problem and it is also very unlikely that she wouldbe able to effectively participate in activity. ??She may benefit from an epidural steroid injection but again given the severity of her problem it is less likely to be significantly effective or effective for??a long duration. ??We discussed surgical correction for her problem??in the form of posterior lumbar interbody fusion L4-5 with likely laminotomy or foraminotomy??at L5-S1 bilaterally.?? The nature of the surgery including the risks of infection, bleeding, nerve injury and paralysis and a djacent segment degeneration were discussed. ??The nature of postoperative??recovery was also discussed.?? She should have significant relief in her pain with surgical correction. ??We did discuss that??paresthesias??that she is experiencing her feet can be caused by many different problems but??her lumbar spine problem may be contributing to the symptoms and this may improve but??if it is a result of her lumbar spine problem it can take??months??to notice improvement??due to the nature of nerve healing. 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 She states that her daughter is moving home to live with her next month so she would have help at home.?? She would like to proceed with scheduling surgery for her problem. ??I explained the patient that I would like to review her MRI with Dr. Schultz upon his return early next week and that we can proceed with the scheduling process. ??She will need??a preoperative visit with Dr. Schultz as well as PCP clearance. Plan: The patient's imaging will be reviewed with Dr. Schultz next week and that we can proceed with surgical scheduling. ??She will need a preoperative visit with Dr. Schultz and PCP clearance. Problem List/Past Medical History Ongoing Chronic constipation Chronic pelvic pain of female Chronic sacral back pain Constipation Fatigue Herniation of rectum into vagina History infected tick bite Hyperlipidemia Leukopenia Lightheadedness Low back pain Lumbar spinal stenosis Malaise Paresthesia of lower extremity Peripheral neuropathy Prediabetes Presence of calculi Rectal pain Small intestine Impaction Spondylolisthesis of lumbar region Vitamin D deficiency Historical No qualifying data Procedure/Surgical History ??? section???Tonsillectomy???Varicose vein operation Medications No active medications Allergies No Known Medication Allergies Social History Alcohol 1-2 times per week Electronic Cigarette/Vaping Electronic Cigarette Use: Never. Substance Use Never Tobacco Never tobacco user Tobacco Use:. Family History Breast cancer: Mother. Dementia: Mother. Hypertension: Father. Macular degeneration: Father. Osteoporosis: Mother. Parkinson disease: Brother. Thyroid disorder: Mother. Diagnostic Results Diagnostic Study Interpretation: MRI of the lumbar spine was reviewed with patient.?? There is an anterolisthesis of L4 over L5. ??At L4-5 there is a diffuse disc bulge with bilateral facet and ligamentum flavum hypertrophy causing significant central??and bilateral lateral recess stenosis and mild to moderate bilateral neuroforaminal narrowing. ??At L5-S1 there is a diffuse disc bulge with mild bilateral facet and ligamentum fla vum hypertrophy causing mild central and bilateral lateral recess stenosis and significant bilateral neuroforaminal narrowing that is slightly more pronounced on the left side. Electronically Signed on 02/17/23 12:39 PM MINOR Fletcher Patient Care team information Care Team Personnel Name: CLAUDETTE ROSSI N.D. Position: No Access Member Role: Primary Care Physician Address: Address: [address] [place] [id number] [place]
--- OUTSIDE RECORDS SUMMARY | 2023-03-16 15:20 | XMS_ITS | Continuity of Care Document ---
Author Name Unknown Organization [facility] Address [address] [place] [address] Care Team Providers Care Washateria Attendant Name Role Phone CLAUDETTE ROSSI N.D. Primary Care Physician Encounter [facility] NBR [id number] Date(s): 02/03/23 - 02/03/23 [facility] [address] [place] [address] Discharge Disposition: Home Allergies, [...] Member Role: Primary Care Physician Address: Address: [address] [place] [id number]
--- OUTSIDE RECORDS SUMMARY | 2023-03-16 15:20 | XMS_ITS | Continuity of Care Document ---
Author Name Unknown Organization [facility] Ambulatory Clinics Address [address] [place] [address] Care Team Providers Care Janitorial Services Supervisor Name Role Phone CLAUDETTE ROSSI N.D. Primary Care Physician Encounter [facility] NBR [id number] Date(s): 01/13/23 - 01/13/23 [facility] Ambulatory Clinics [address] [place] [address] [place] Discharge Disposition: Home Allergies, [...] Member Role: Primary Care Physician Address: Address: [address] [place] [id number]
[2023-03-16 19:57] LABS: Abs Immature Grans 0.01 10^3/uL (0.0-0.06); Absolute Basophil Count 0.04 10^3/uL (0.0-0.2); Absolute Eosinophil Count 0.07 10^3/uL (0.0-0.7); Absolute Lymphocyte Count 2.05 10^3/uL (1.2-3.4); Absolute Monocyte Count 0.41 10^3/uL (0.1-0.8); Absolute Neutrophil Count 1.97 10^3/uL (1.2-6.7); Basophils % 0.9; Eosinophils % 1.5; HCT 42.4 % (36.0-46.0); HGB 13.6 g/dL (11.2-15.7); Immature Grans % 0.2; Lymphocytes % 45.1; MCHC 32.1 % (32.0-36.0); MCV 90 fL (80-95); MPV 11.2 fL (8.0-11.0); Neutrophils % 43.3; Platelet Count 293 10^3/uL (130-400); RBC 4.69 10^6/uL (3.93-5.22); RDW 12.7 % (11.7-14.6); RDW-SD 42.1 fL; WBC 4.55 10^3/uL (4.4-10.8)
[2023-03-16 20:13] LABS: ALT 34 U/L (14-59); AST 23 U/L (15-37); Albumin 4.1 g/dL (3.4-5.0); Alkaline Phosphatase 81 U/L (46-116); Anion Gap 6.1 mmol/L (3-11); BUN 13 mg/dL (7-18); Bilirubin, Total 0.3 mg/dL (0.2-1.0); CO2 28.9 mmol/L (21.0-32.0); CREATININE 0.8 mg/dL (0.55-1.02); Calcium 9.8 mg/dL (8.5-10.1); Chloride 103 mmol/L (98-107); Estimated GFR 83.26 (mL/min/1.73m2); Glucose 98 mg/dL (74-106); Potassium 4.5 mmol/L (3.5-5.1); Sodium 138 mmol/L (136-145); Total Protein 7.3 g/dL (6.4-8.2)
== END 2023-03-16 15:17 | disposition home or self-care (01) ==
LOC: LBN 15:16
PROVIDERS: PCP Naturopath; Visit Provider Physician Assistant Medical
DX: R07.9 Chest pain, unspecified (principal)
CPT/HCPCS: 80053; 84443; 85025

== ENCOUNTER → 2023-03-27 01:29 | Outpatient (CLI) | payer MEDICAID, SELFPAY ==
--- NOTE | 2023-03-27 | ETT_ITS ---
APPROVED REPORT Exam: Exercise Treadmill Patient Location: Out-Patient Room/Bed: Stress Nurse: Nazario Dockery RN Ordering Provider:GUERLINE JACOBSON, Contact Number: BMI: 22.14 Baseline Rhythm: Sinus Rhythm Indications: Chest pain, Medical History Medical History: None Cardiac Medications: None Allergies: NKDA Cardiac Risk Factors: None Previous Cardiac Procedures: None Pretest Chest Pain Characteristics: None Exercise History: Physically active Physical Disabilities: none Lung Sounds: clear Heart Sounds: Regular Stress Test Details Test: Exercise stress testing was performed using a Howie protocol. Rest Stress HR Resting HR Supine: 62 bpm Max Heart Rate (APMHR): 158 bpm Resting HR Standin bpm Target HR (85% APMHR): 134 bpm Max HR Achieved: 145 bpm % of APMHR: 92 Recovery HR: 69 bpm HR response to stress: Normal HR response to stress BP Resting BP Supine: 126/84 mmHg Resting BP Standin/82 mmHg Max BP: 160/76 mmHg Recovery BP: 130/84 mmHg BP response to stress: Normal blood pressure response to stress. ECG Resting ECG: Sinus Rhythm Ectopy: none Stress ECG: Sinus Tachycardia ST Change: No significant ST segment changes noted Arrhythmia: None Recovery ECG: Sinus Rhythm Recovery ST Change: No significant ST segment changes noted Recovery Arrhythmia: APC Clinical Reason for Termination: Fatigue, Target HR Achieved Stress Symptoms: none Exercise duration: 9 min27 sec Highest Stage Reached: 4 Exercise capacity: 10.89 METs Angina Score: None Khan Treadmill Score: 8.6 Rate Pressure Product: [id number] Stress ECG Conclusion 1. Resting electrocardiogram was within normal limits 2. Patient exercised on the Howie protocol and completed a workload of 10.89 METS 3. Normal heart rate and blood pressure response to exercise. The patient achieved 92% of predicted heart rate for age 4. There was no electrocardiographic evidence of myocardial ischemia 5. There were no significant dysrhythmias Khan Treadmill Score is 8.6 which is Low risk. Stress Test Summary STAGE Time (mins) Speed (mph) Grade (%) HR BP SpO2 SYMPTOMS METS Supine 62 126/84 95 Standing 71 108/82 1 3 1.7 10 90 110/80 97 4.5 2 6 2.5 12 110 120/80 97 7 3 9 3.4 14 133 97 10 1 min recovery 98 160/76 99 3 min recovery 71 148/94 97 6 min recovery 69 130/84
== END ==
PROVIDERS: PCP Naturopath; Visit Provider Physician Assistant Medical
DX: R07.9 Chest pain, unspecified (principal)
CPT/HCPCS: 93017

== ENCOUNTER 2023-04-27 01:53 | Outpatient (CLI) | payer MEDICAID, SELFPAY ==
[2023-04-27 07:59] LABS: Kit/Specimen SENT
[2023-04-27 08:11] LABS: Absolute Basophil Count 0.03 10^3/uL (0.0-0.2); Absolute Eosinophil Count 0.11 10^3/uL (0.0-0.7); Absolute Lymphocyte Count 2.14 10^3/uL (1.2-3.4); Absolute Monocyte Count 0.41 10^3/uL (0.1-0.8); Absolute Neutrophil Count 1.54 10^3/uL (1.2-6.7); Basophils % 0.7; Eosinophils % 2.6; HCT 42.6 % (36.0-46.0); HGB 14.1 g/dL (11.2-15.7); Lymphocytes % 50.6; MCH 29.5 pg (27.0-33.0); MCHC 33.1 % (32.0-36.0); MCV 89 fL (80-95); MPV 10.6 fL (8.0-11.0); Monocytes % 9.7; Neutrophils % 36.4; Platelet Count 271 10^3/uL (130-400); RBC 4.78 10^6/uL (3.93-5.22); RDW 12.5 % (11.7-14.6); WBC 4.23 10^3/uL (4.4-10.8)
[2023-04-27 08:43] LABS: ALT 30 U/L (14-59); AST 16 U/L (15-37); Albumin 3.9 g/dL (3.4-5.0); Alkaline Phosphatase 79 U/L (46-116); Anion Gap 4.9 mmol/L (3-11); BUN 14 mg/dL (7-18); Bilirubin, Total 0.3 mg/dL (0.2-1.0); CO2 32.1 mmol/L (21.0-32.0); CREATININE 0.9 mg/dL (0.55-1.02); Calcium 9.4 mg/dL (8.5-10.1); Calculated LDL 201 mg/dL (<100); Chloride 103 mmol/L (98-107); Cholesterol 296 mg/dL (<200); Estimated GFR 72.28 (mL/min/1.73m2); Ferritin 62 ng/mL (8-252); Glucose 80 mg/dL (74-106); HDL Cholesterol 74 mg/dL (40-60); Potassium 4.2 mmol/L (3.5-5.1); Sodium 140 mmol/L (136-145); Total Protein 7.6 g/dL (6.4-8.2); Triglyceride 105 mg/dL (<150); Vitamin B12 924 pg/mL (193-986)
[2023-04-27 08:45] LABS: Iron 99 ug/dL (50-170); Total Iron Binding Capacity 336 ug/dL (250-450); Transferrin Sat 29 % (15-50)
[2023-04-27 08:48] LABS: Folate > 20.0 ng/mL (8.6-20.0)
[2023-04-27 09:08] LABS: Vitamin D 25 Total 28.7 ng/mL (30-100)
[2023-04-28 08:53] LABS: Homocysteine 8.9 umol/L (5.0-13.9)
== END 2023-04-27 01:54 | disposition home or self-care (01) ==
LOC: LBO 01:53
PROVIDERS: PCP Naturopath; Visit Provider Naturopath
DX: R73.03 Prediabetes (principal); E78.5 Hyperlipidemia, unspecified; D72.819 Decreased white blood cell count, unspecified; E55.9 Vitamin D deficiency, unspecified
CPT/HCPCS: 36415; 80053; 80061; 82306; 83090; 82607; 82728; 82746; 83036; 83540; 83550; 85025

== ENCOUNTER 2023-06-22 10:06 | Outpatient (CLI) | payer MEDICAID, SELFPAY ==
--- NOTE | 2023-06-22 10:00 | RT.EKG_ITS ---
APPROVED REPORT Exam: Resting ECG Reason for Exam: SURGICAL CLEARANCE Patient Location: O HR:62 bpm ECG Measurements Heart Rate 62 AXIS AL 139 P 40 QRSd 93 QRS 32 QT 416 T 43 QTc 423 Conclusion Sinus rhythm...normal P axis, V-rate 50- 99 I have reviewed and interpreted ECG and agree with software generated interpretation.
== END 2023-06-22 10:07 | disposition home or self-care (01) ==
PROVIDERS: PCP Naturopath; Visit Provider Naturopath
DX: Z01.818 Encounter for other preprocedural examination (principal)
CPT/HCPCS: 93005; 93010

== ENCOUNTER 2023-06-22 10:47 | Outpatient (CLI) | payer MEDICAID, SELFPAY ==
[2023-06-22 11:20] LABS: Abs Immature Grans 0.01 10^3/uL (0.0-0.06); Absolute Basophil Count 0.03 10^3/uL (0.0-0.2); Absolute Eosinophil Count 0.11 10^3/uL (0.0-0.7); Absolute Lymphocyte Count 2.52 10^3/uL (1.2-3.4); Absolute Monocyte Count 0.44 10^3/uL (0.1-0.8); Absolute Neutrophil Count 1.99 10^3/uL (1.2-6.7); Basophils % 0.6; Eosinophils % 2.2; HCT 41.6 % (36.0-46.0); HGB 13.5 g/dL (11.2-15.7); Immature Grans % 0.2; Lymphocytes % 49.4; MCH 28.4 pg (27.0-33.0); MCHC 32.5 % (32.0-36.0); MCV 88 fL (80-95); MPV 10.7 fL (8.0-11.0); Monocytes % 8.6; Platelet Count 273 10^3/uL (130-400); RBC 4.75 10^6/uL (3.93-5.22); RDW 12.9 % (11.7-14.6); RDW-SD 42.2 fL
[2023-06-22 11:52] LABS: ALT 25 U/L (14-59); AST 17 U/L (15-37); Albumin 4.3 g/dL (3.4-5.0); Alkaline Phosphatase 69 U/L (46-116); Anion Gap 7.9 mmol/L (3-11); BUN 15 mg/dL (7-18); Bilirubin, Total 0.4 mg/dL (0.2-1.0); CO2 30.1 mmol/L (21.0-32.0); CREATININE 0.9 mg/dL (0.55-1.02); Calcium 9.8 mg/dL (8.5-10.1); Chloride 103 mmol/L (98-107); Estimated GFR 72.28 (mL/min/1.73m2); Glucose 106 mg/dL (74-106); Sodium 141 mmol/L (136-145); Total Protein 7.9 g/dL (6.4-8.2)
== END 2023-06-22 10:48 | disposition home or self-care (01) ==
LOC: LBO 10:47
PROVIDERS: PCP Naturopath; Visit Provider Naturopath
DX: Z01.818 Encounter for other preprocedural examination (principal)
CPT/HCPCS: 36415; 80053; 85025

== ENCOUNTER 2024-02-19 09:54 | Outpatient (CLI) | payer MEDICAID, SELFPAY ==
[2024-02-19 10:05] LABS: ESR 1 mm/hr (0-30)
[2024-02-19 10:06] LABS: Absolute Basophil Count 0.03 10^3/uL (0.0-0.2); Absolute Eosinophil Count 0.04 10^3/uL (0.0-0.7); Absolute Monocyte Count 0.35 10^3/uL (0.1-0.8); Absolute Neutrophil Count 1.82 10^3/uL (1.2-6.7); Basophils % 0.7 %; Eosinophils % 0.9 %; HCT 43.8 % (36.0-46.0); HGB 14.1 g/dL (11.2-15.7); Lymphocytes % 47.2 %; MCHC 32.2 % (32.0-36.0); MCV 90 fL (80-95); MPV 10.3 fL (8.0-11.0); Monocytes % 8.3 %; Neutrophils % 42.9 %; Platelet Count 291 10^3/uL (130-400); RBC 4.87 10^6/uL (3.93-5.22); RDW 12.7 % (11.7-14.6); RDW-SD 41.7 fL; WBC 4.24 10^3/uL (4.4-10.8)
[2024-02-19 10:44] LABS: ALT 30 U/L (14-59); AST 17 U/L (15-37); Albumin 4.2 g/dL (3.4-5.0); Alkaline Phosphatase 98 U/L (46-116); Anion Gap 8.3 mmol/L (3-11); BUN 12 mg/dL (7-18); Bilirubin, Total 0.35 mg/dL (0.2-1.0); CO2 28.7 mmol/L (21.0-32.0); CREATININE 0.9 mg/dL (0.55-1.02); Calcium 9.3 mg/dL (8.5-10.1); Chloride 101 mmol/L (98-107); Estimated GFR 71.83 (mL/min/1.73m2); FREE T4 1.03 ng/dL (0.76-1.46); Glucose 105 mg/dL (74-106); Sodium 138 mmol/L (136-145); TSH 1.45 uIU/Ml (0.36-3.74); Total Protein 7.9 g/dL (6.4-8.2)
[2024-02-19 11:02] LABS: Iron 58 ug/dL (50-170); Total Iron Binding Capacity 368 ug/dL (250-450); Transferrin Sat 16 % (15-50)
[2024-02-19 11:21] LABS: Ferritin 33 ng/mL (8-252); Vitamin B12 987 pg/mL (193-986); Vitamin D 25 Total 44.9 ng/mL (30-100)
[2024-02-19 11:27] LABS: Folate > 20.0 ng/mL (8.6-20.0)
[2024-02-21 11:10] LABS: Lipoprotein (a) 24 nmol/L (<75)
[2024-02-22 10:46] LABS: Apolipoprotein A1, S 182 mg/dL (>=140); Apolipoprotein B, S 111 mg/dL (See Comment); Apolipoprotein B/A 1 ratio 0.6 (See Comment)
== END 2024-02-19 09:55 | disposition home or self-care (01) ==
LOC: LBO 09:57
PROVIDERS: PCP Naturopath; Visit Provider Naturopath
DX: R53.83 Other fatigue (principal); E78.5 Hyperlipidemia, unspecified; R73.03 Prediabetes; E55.9 Vitamin D deficiency, unspecified; M54.9 Dorsalgia, unspecified
CPT/HCPCS: 36415; 80053; 82172; 82306; 83695; 85652; 82607; 82728; 82746; 83036; 83540; 83550; 84439; 84443; 85025

== ENCOUNTER 2024-02-20 13:11 | Emergency (ER) | payer MEDICAID, SELFPAY ==
--- NOTE | 2024-02-20 13:00 | RT.EKG_ITS ---
APPROVED REPORT Exam: Resting ECG Reason for Exam: chest pain Patient Location: E HR:73 bpm ECG Measurements Heart Rate 73 AXIS MS 132 P 39 QRSd 74 QRS 7 QT 391 T 36 QTc 431 Conclusion Sinus rhythm 73 normal axis no stemi
[2024-02-20 13:15] VITALS: BP 151/97; PULSE 73; RESP 18; TEMP 36.8; O2SAT 96
--- NOTE | 2024-02-20 13:15 | DI.RAD_ITS ---
Exam(s) XR CHEST 2V PA LATERAL EXAM: XR CHEST 2V PA LATERAL CLINICAL HISTORY: chest pain. TECHNIQUE: 2D digital imaging was performed. COMPARISON: CT CT ABDOMEN PELVIS W from 01/05/2022 CR XR ABD FLAT UPRIGHT PA CHEST from 01/14/2022 FINDINGS: 2 views: Heart size is normal. The mediastinum is not widened. There are no confluent infiltrates nor pleural effusions. There is a round 1.5 cm nodular density of the left lung base which is probably the breast nipple shadow. Large left renal calculi again noted appearing unchanged in size and position from images of December 28.. IMPRESSION: No obvious acute pulmonary findings.Nodular density projected over the left lung base is probably the left breast nipple. Consider repeat PA view of the chest with bilateral metallic nipple markers in place. DATA REPOSITORY: RADIATION DOSE DELIVERED:
[2024-02-20 13:39] LABS: Abs Immature Grans 0.01 10^3/uL (0.0-0.06); Absolute Basophil Count 0.03 10^3/uL (0.0-0.2); Absolute Eosinophil Count 0.05 10^3/uL (0.0-0.7); Absolute Lymphocyte Count 2.03 10^3/uL (1.2-3.4); Absolute Monocyte Count 0.44 10^3/uL (0.1-0.8); Absolute Neutrophil Count 3.12 10^3/uL (1.2-6.7); Basophils % 0.5 %; Eosinophils % 0.9 %; HCT 40.9 % (36.0-46.0); HGB 13.5 g/dL (11.2-15.7); Immature Grans % 0.2 %; Lymphocytes % 35.7 %; MCH 29.2 pg (27.0-33.0); MCV 89 fL (80-95); MPV 10.4 fL (8.0-11.0); Monocytes % 7.7 %; Platelet Count 296 10^3/uL (130-400); RBC 4.62 10^6/uL (3.93-5.22); RDW 12.6 % (11.7-14.6); RDW-SD 41.1 fL; WBC 5.68 10^3/uL (4.4-10.8)
[2024-02-20] MEDS: LORazepam 0.5 MG TAB PO (13:50)
[2024-02-20] MEDS: Aspirin 81 MG CHEW 324 MG CH (13:51)
[2024-02-20 13:52] VITALS: RESP 16
[2024-02-20 13:55] LABS: INR 1.1 (0.9-1.1); PTT Activated 28.1 sec (23.6-32.8); Prothrombin Time 10.6 sec (9.1-11.1)
[2024-02-20 14:02] LABS: ALT 26 U/L (14-59); AST 18 U/L (15-37); Alkaline Phosphatase 92 U/L (46-116); Anion Gap 6.6 mmol/L (3-11); BUN 16 mg/dL (7-18); Bilirubin, Total 0.33 mg/dL (0.2-1.0); CO2 29.4 mmol/L (21.0-32.0); CREATININE 0.8 mg/dL (0.55-1.02); Calcium 9.4 mg/dL (8.5-10.1); Chloride 102 mmol/L (98-107); Estimated GFR 82.74 (mL/min/1.73m2); Glucose 107 mg/dL (74-106); NT-proBNP 74 pg/mL (<300); Potassium 3.6 mmol/L (3.5-5.1); Sodium 138 mmol/L (136-145); Total Protein 7.5 g/dL (6.4-8.2); Troponin I 5 ng/L (<or=51)
--- NOTE | 2024-02-20 14:07 | ED.GENADUL_ITS ---
Discharge Plan Disposition Patient Disposition: Home Condition: Improving Discharge Details Chief Complaint: Chest Pain Clinical Impression: Chest pain Primary Care Provider: Angelica Jackson ED Provider: Angel Gallardo Home Meds and New Rx's Prescriptions: No Action B-complex with vitamin C [[id number]] Capsule 1 cap PO DAILY Discharge Instructions Instructions: Chest Pain, Adult ED Additional Instructions: Please follow-up with your primary care physician regarding your symptomatology today as well as your x-ray results. Consider repeat x-ray imaging in the coming weeks. Please return to the emergency department for any worsening symptoms HPI General Date/Time Provider Initiated Documentation: 02/20/24 13:21 . HPI Narrative: 64-year-old female presents with anterior chest pain over the last 5 days occasionally radiating up into the neck, no nausea vomiting diaphoresis shortness of breath palpitation or presyncope. No history of coronary disease or thromboembolic disease. Patient endorses being under a lot of stress preparing for the winter season. Related Data Home Medications ?Medication ?Instructions ?Recorded ?Confirmed B-complex with vitamin C 1 cap PO DAILY 02/18/22 02/20/24 Allergies Allergy/AdvReac Type Severity Reaction Status Date / Time poison donaldo extract Allergy Itching Verified 02/20/24 13:33 General Stated Complaint: Chest Pain RONAK: 3 Exam Narrative Exam Narrative: Alert interactive no acute distress Moist mucous membranes tongue secretions normal voice no stridor Lungs clear bilaterally no wheezes rales or rhonchi appreciated Normal heart sounds no murmurs rubs or gallops Abdomen soft nontender nondistended Moving all extremities without deficit No peripheral edema, no rash Calm cooperative normal affect Course Vital Signs Vital signs: Vital Signs Temperature 36.8 C 02/20/24 13:15 Pulse 73 02/20/24 13:15 Respiratory Rate 18 02/20/24 13:15 Blood Pressure 151/97 H 02/20/24 13:15 Pulse Oximetry 96 02/20/24 13:15 Temperature 36.8 C 02/20/24 13:15 Pulse 73 02/20/24 13:15 Respiratory Rate 16 02/20/24 13:52 Respiratory Effort Normal, Non-Labored 02/20/24 13:52 Respiratory Depth Normal 02/20/24 13:52 Respiratory Pattern Normal 02/20/24 13:52 Blood Pressure 151/97 H 02/20/24 13:15 Pulse Oximetry 96 02/20/24 13:15 Oxygen Delivery Method Room Air 02/20/24 13:15 Oxygen Flow Rate 0 02/20/24 13:15 Lab/Test Results Lab/Test Results: Laboratory Tests Range/Units 02/20/24 13:27 WBC (4.4-10.8) 10^3/uL 5.68 RBC (3.93-5.22) 10^6/uL 4.62 Hgb (11.2-15.7) g/dL 13.5 Hct (36.0-46.0) % 40.9 MCV (80-95) fL 89 MCH (27.0-33.0) pg 29.2 MCHC (32.0-36.0) % 33.0 RDW (11.7-14.6) % 12.6 Plt Count (130-400) 10^3/uL 296 MPV (8.0-11.0) fL 10.4 Immature Gran % % 0.2 Neutrophils % % 55.0 Lymphocytes % % 35.7 Monocytes % % 7.7 Eosinophils % % 0.9 Basophils % % 0.5 Nucleated RBC % (0.0-0.3) % 0.0 Absolute Neutrophils (1.2-6.7) 10^3/uL 3.12 Absolute Lymphocytes (1.2-3.4) 10^3/uL 2.03 Absolute Monocytes (0.1-0.8) 10^3/uL 0.44 Absolute Eosinophils (0.0-0.7) 10^3/uL 0.05 Absolute Basophils (0.0-0.2) 10^3/uL 0.03 PT (9.1-11.1) sec 10.6 INR (0.9-1.1) 1.1 APTT (23.6-32.8) sec 28.1 Sodium (136-145) mmol/L 138 Potassium (3.5-5.1) mmol/L 3.6 Chloride (98-107) mmol/L 102 Carbon Dioxide (21.0-32.0) mmol/L 29.4 Anion Gap (3-11) mmol/L 6.6 BUN (7-18) mg/dL 16 Creatinine (0.55-1.02) mg/dL 0.8 Est GFR (CKD-EPI 2021) (mL/min/1.73m2) 82.74 Glucose (74-106) mg/dL 107 H Calcium (8.5-10.1) mg/dL 9.4 Total Bilirubin (0.2-1.0) mg/dL 0.33 AST (15-37) U/L 18 ALT (14-59) U/L 26 Alkaline Phosphatase (46-116) U/L 92 Troponin I (<or=51) ng/L 5 NT-Pro-B Natriuret Pep (<300) pg/mL 74 Total Protein (6.4-8.2) g/dL 7.5 Albumin (3.4-5.0) g/dL 4.0 Medical Decision Making 64-year-old female presents with anterior chest pain over the last 5 days occasionally radiating up into the neck, no nausea vomiting diaphoresis shortness of breath palpitation or presyncope. No history of coronary disease or thromboembolic disease. Patient endorses being under a lot of stress prepari ng for the winter season. Hemodynamically stable resting comfortably no acute distress EKG normal sinus rhythm nonischemic. Afebrile nontoxic moderately hypertensive however must consider discomfort versus anxiety. Patient is no history of coronary disease with thromboembolic disease. Consider anxiety versus musculoskeletal versus costochondritis versus ACS versus less likely PE aortic pathology pneumothorax or pneumonia given history and physical. Will obtain screening labs troponin BNP, coags, chest x-ray, loading with aspirin 324 chewable, patient amenable to receiving low-dose anxiolysis. 16: 03 chest pain-free 2 troponin negative. X-ray clear. Likely nipple shadow on x-ray, counseled patient regarding this finding she will follow-up closely with her primary care for repeat imaging as necessary. Home care instructions and return precautions given Quality:SDOH Health Related Social Needs: No Data to Display PFSH All Active Problems (Updated 02/20/24 @ 16:12 by Angel Gallardo MD) Chest pain (Acute) Chest pain (Acute) Colon polyp (Acute) Lightheadedness (Acute) Varicose veins of both lower extremities (Acute) Chronic pelvic pain in female (Acute) Rectal pain (Acute) Herniation of rectum into vagina (Acute) Leukopenia (Acute) Impaction of intestine (Acute) Medical History Fatigue Hyperlipidemia Low back pain Surgical History H/O section H/O colonoscopy History of tonsillectomy Social History Smoking/Tobacco Use Status: Never Smoking risk assessment performed?: Yes Alcohol Intake: current Alcohol Intake frequency: holidays/special occasions only Drug use: Never Substance use type: does not use Housing: house Do you feel safe at home: Yes Do you feel safe in your relationship?: Yes Additional Social history: lives alone [employer] Have you Been Recently Intoxicated or Drunk Within the Last 30 days?: No Have you Ever Experienced Previous Episodes of Alcohol Withdrawal?: No Have you ever Experienced Withdrawal Seizures?: No Have you ever Experienced Delirium Tremens(DT)s?: No Have you ever undergone Alcohol Rehabilitation Treatment (i.e, inpt ot outpatient treatment programs)?: No Have you ever Experienced Blackouts?: No Have you ever Combined Alcohol with other Downers within the last 90 days?: No Have you ever Combined Alcohol with any other Substance of Abuse during the last 90 days?: No Result: 0
[2024-02-20 15:34] LABS: Troponin I 5 ng/L (<or=51)
[2024-02-20 16:16] VITALS: BP 140/91; PULSE 68; RESP 20; TEMP 36.8; O2SAT 98
== END 2024-02-20 16:29 | disposition home or self-care (01) ==
PROVIDERS: Emergency Provider Emergency Medicine; PCP Naturopath
DX: R07.9 Chest pain, unspecified (principal); N13.2 Hydronephrosis with renal and ureteral calculous obstruction; E78.5 Hyperlipidemia, unspecified
CPT/HCPCS: 80053; 93005; 71046; 83880; 84484; 85025; 85610; 85730; 93010

== ENCOUNTER 2024-04-30 12:33 | Outpatient (CLI) | payer MEDICAID, SELFPAY ==
[2024-05-01 21:13] LABS: Mercury, B 1 ng/mL (<10)
== END 2024-04-30 12:34 | disposition home or self-care (01) ==
LOC: LBO 12:34
PROVIDERS: PCP Naturopath; Visit Provider Naturopath
DX: Z77.018 Contact with and (suspected) exposure to other hazardous metals (principal)
CPT/HCPCS: 36415; 83825

== ENCOUNTER 2024-05-02 10:56 | Outpatient (REF) | payer MEDICAID, SELFPAY ==
[2024-05-07 08:57] LABS: Misc Referral (MAYO) See Comments
== END 2024-05-02 10:57 | disposition home or self-care (01) ==
LOC: LBN 10:56
PROVIDERS: PCP Naturopath; Visit Provider Naturopath
DX: Z77.018 Contact with and (suspected) exposure to other hazardous metals (principal)
CPT/HCPCS: 83825; 81050